=== PATIENT | male | born 1955 | race Two or more races ===

== ENCOUNTER 2018-12-28 07:08 | Day surgery (SDC) | payer BC ==
[2018-12-28] VITALS (8 sets, daily range): BP systolic 116–144; BP diastolic 79–90
[~2018-12-28] VITALS: Ht 170.2 cm; Wt 70.3 kg
[2018-12-28] MEDS ORDERED: VITAMIN D1000 UNI1 ORAL (07:39)
[2018-12-28] MEDS ORDERED: ONE DAILY MULT1 EAC1 ORAL (07:39)
--- NOTE | 2018-12-28 08:13 | Anethesia Preoperative Eval ---
Anesthesia Pre-op PMH/ROS General Date of Evaluation: Dec 28, 2018 Time of Evaluation: 08:11 Anesthesiologist: shayla ASA Score: ASA 2 Mallampati Score Class I : Soft palate, uvula, fauces, pillars visible Class II: Soft palate, uvula, fauces visible Class III: Soft palate, base of uvula visible Class IV: Only hard plate visible Mallampati Classification: Class II Surgeon: anita Diagnosis: gerd, colon screening Surgical Procedure: egd/colonoscopy Anesthesia History: none Social History: smoking - nonsmoker Family History: no anesthesia problems Allergies: Coded Allergies: NO KNOWN DRUG ALLERGIES (Verified Allergy, Unknown, 12/28/18) Medications: see eMAR Patient NPO?: Yes Past Medical History HEENT: Reports: other - wears corrective lenses Musculoskeletal/Integumentary: Reports: other - back pain PSxH Narrative: bilateral knee arthroscopy, left tessy Anesthesia Pre-op Phys. Exam Physician Exam Last Vital Signs Date Time Temp Pulse Resp B/P (MAP) Pulse Ox O2 Delivery O2 Flow Rate FiO2 12/28/18 07:46 Room Air 12/28/18 07:43 97.0 65 18 122/80 97 Constitutional: NAD Neurologic: CN 2-12 intact Cardiovascular: RRR Respiratory: CTA Gastrointestinal: S/NT/ND Airway Exam Mallampati Score: Class II MO: limited Neck: flexible TMD: 2fb ROM: limited Anesthesia Pre-op A/P Studies Pre-op Studies: EKG - sinus bradycardia Risk Assessment & Plan Assessment: asa2 Plan: mac Status Change Before Surgery: No Pre-Antibiotics Drug: Priscilla Ponce MD Dec 28, 2018 08:13
[2018-12-28] MEDS ORDERED: Atropine Sulfate 0.4mg/ml inj IVP PRN (08:15)
[2018-12-28] MEDS ORDERED: fentaNYL 100 mcg/2 mL IV PRN (08:15)
[2018-12-28] MEDS ORDERED: Midazolam 2mg/2ml Inj IVP PRN (08:15)
[2018-12-28] MEDS ORDERED: DiphenhydrAMINE 50mg/ml Inj IVP PRN (08:15)
[2018-12-28] MEDS ORDERED: Lidocaine 1% MPF 10mg/ml 5ml ONE (08:30)
[2018-12-28] MEDS ORDERED: Propofol 200mg/20ml IV ONE (08:30)
--- NOTE | 2018-12-28 09:11 | Pre-Procedure Note/Attestation ---
Pre-Procedure Note/Attestation Complete Prior to Procedure Planned Procedure: not applicable Procedure Narrative: esophagogastroduodenoscopy and colonoscopy Indications for Procedure Pre-Operative Diagnosis: screening colon, GERD Attestation I attest that I discussed the nature of the procedure; its benefits; risks and complications; and alternatives (and the risks and benefits of such alternatives ), prior to the procedure, with the patient (or the patient's legal business office representative). I attest that, if there was a reasonable possibility of needing a blood transfusion, the patient (or the patient's legal business office representative) was given the [facility] standardized written summary, pursuant to the [place] Blood Safety Act ([place] Health and Safety Code # 1645, as amended). I attest that I re-evaluated the patient just prior to the surgery and that there has been no change in the patient's H&P, except as documented below: Jd Stearns MD Dec 28, 2018 09:11
--- NOTE | 2018-12-28 09:12 | Short Stay Surgery H&P ---
History of Present Illness History of Present Illness Chief Complaint screening colon, GERD HPI Luis Angel Beal is a 63 year old male who was admitted on for Gerd, Colon Screening Patient History Allergies: Coded Allergies: NO KNOWN DRUG ALLERGIES (Verified Allergy, Unknown, 12/28/18) PAST MEDICAL HISTORY: (1) Acute hemorrhoid Medication History Scheduled Cholecalciferol (Vitamin D3)* (Vitamin D*), 1,000 UNIT ORAL DAILY, (Reported) Multivitamin (One Daily Multivitamin), 1 TAB ORAL DAILY, (Reported) Review of Systems Cardiovascular: Reports: no symptoms Respiratory: Reports: no symptoms Skeletal: Reports: no symptoms Gastrointestinal: Reports: no symptoms Genitourinary: Reports: no symptoms Neurologic: Reports: no symptoms Endocrine: Reports: no symptoms Physical Exam Vital Signs Last Vital Signs Date Time Temp Pulse Resp B/P (MAP) Pulse Ox O2 Delivery O2 Flow Rate FiO2 12/28/18 07:46 Room Air 12/28/18 07:43 97.0 65 18 122/80 97 Skin: normal HENT: normal Heart: normal Lungs: normal Abdomen: normal Extremities: normal Plan Plan of Care esophagogastroduodenoscopy and clonoscopy Attestation Are the patient's medical conditions optimized for surgery? Attestation Response: yes Jd Stearns MD Dec 28, 2018 09:12
--- NOTE | 2018-12-28 09:33 | Endoscopy Procedure Note ---
Endoscopy Procedure Note General Indication for Procedure: screening colon, GERD Procedures Performed: EGD, colonoscopy Operative Findings/Diagnosis: gastritis, one colon polyp Specimen: yes Pt Tolerated Procedure Well: Yes Estimated Blood Loss: none Anesthesia Anesthesiologist: momo Anesthesia: MAC Inserted Devices Implant(s) used?: No Quality Quality of Bowel Preparation: Good Did scope reach the cecum?: Yes Was there any complications?: No GI Core Measures 50 yrs or older w/o bx or poly: No 10yrs. F/U recommended: Yes If not recommended, why?: Above average risk 18 years or older w/prev. colo: Yes <3yrs. since last colonoscopy: No Jd Stearns MD Dec 28, 2018 09:33
--- NOTE | 2018-12-28 10:21 | Immediate Post-Op Evaluation ---
Immediate Post-Op Evalulation Immediate Post-Op Evalulation Procedure: egd/colonoscopy/bx Date of Evaluation: Dec 28, 2018 Time of Evaluation: 09:52 IV Fluids: 425ml 0.9ns Blood Products: none Estimated Blood Loss: negligible Blood Pressure Systolic: 116 Blood Pressure Diastolic: 85 Pulse Rate: 65 Respiratory Rate: 18 O2 Sat by Pulse Oximetry: 99 Temperature (Fahrenheit): 97.4 Pain Score (1-10): 0 Nausea: No Vomiting: No Complications none Patient Status: awake, reacts, patent Hydration Status: adequate Drug: Priscilla Ponce MD Dec 28, 2018 10:21
--- NOTE | 2018-12-28 10:37 | 48 Hour Post Anesthesia Eval ---
Post Anesthesia Evaluation Procedure: egd/colonoscopy/bx Date of Evaluation: Dec 28, 2018 Time of Evaluation: 09:54 Blood Pressure Systolic: 120 0: 85 Pulse Rate: 66 Respiratory Rate: 18 Temperature (Fahrenheit): 97.4 O2 Sat by Pulse Oximetry: 99 Airway: patent Nausea: No Vomiting: No Pain Intensity: 0 Hydration Status: adequate Cardiopulmonary Status: stable Mental Status/LOC: patient returned to baseline Post-Anesthesia Complications: none Follow-up care needed: N/A Priscilla Crowder MD Dec 28, 2018 10:37
--- NOTE | 2018-12-28 15:28 | Cardiology Report ---
APPROVED REPORT EKG Measurement Heart [id number] Sinus bradycardia Otherwise normal ECG
--- NOTE | 2018-12-28 16:15 | Procedure Note ---
DATE OF PROCEDURE: 12/28/2018 SURGEON: Jd Stearns M.D. PROCEDURE: Upper endoscopy with biopsy and colonoscopy with biopsy. ANESTHESIA: Per Dr. Daniels. INSTRUMENT: Olympus adult flexible upper endoscope and colonoscope. INDICATION: Screening colonoscopy evaluation, chronic GERD. REASON FOR PROCEDURE: The procedure, risks, benefits, and possible consequences, including hemorrhage, aspiration, perforation and infection, and alternative treatments, were explained to the patient/legal guardian by Dr. Jd Stearns and the patient/legal guardian understood and accepted these risks. PROCEDURE IN DETAIL: After informed consent was obtained and the patient was adequately sedated, Olympus upper endoscope was advanced from the mouth into the second portion of duodenum and retroflexion was performed in the stomach. The patient had evidence of diffuse gastritis. Random biopsy from antrum was obtained to rule out H. pylori infection. At this time, the upper endoscope was retrieved. The patient was turned over for colonoscopy. First, rectal exam was performed, which was positive for internal hemorrhoids. Then, the scope was advanced from the rectum into the cecum and subsequently to terminal ileum. Quality of prep was good. The patient had normal TI. There was a lot of diverticula in the right colon and some scattered diverticula in the left colon. No obvious diverticulitis. The patient had diminutive polyp in the rectosigmoid area, removed with the cold biopsy forceps technique. Retroflexion of rectum showed evidence of internal hemorrhoids. SUMMARY OF FINDINGS: 1. Gastritis, status post biopsy. 2. Internal hemorrhoids. 3. Diverticulosis. 4. One colonic polyp removed, see above for details. RECOMMENDATIONS: 1. Follow pathology and treat accordingly. 2. We will recommend repeat colonoscopy in 5 years. I want to thank, Dr. Merlos , for this kind referral. Jd Stearns M.D. DR: Ravi JOB#: [id number] CC: Jd Merlos M.D.; Fax#: [phone]
== END 2018-12-28 11:10 | disposition home or self-care (01) ==
LOC: GAS 07:08
DX: Z12.11 Encounter for screening for malignant neoplasm of colon (principal); K21.9 Gastro-esophageal reflux disease without esophagitis; K29.50 Unspecified chronic gastritis without bleeding; K64.8 Other hemorrhoids; K57.90 Diverticulosis of intestine, part unspecified, without perforation or abscess without bleeding; K63.5 Polyp of colon; R00.1 Bradycardia, unspecified
CPT/HCPCS: 43239; 45380; 93005; J2704; 94003; 94150